=== PATIENT | female | born 1950 | race Two or more races ===

== ENCOUNTER → 2016-10-19 | Outpatient (CLI) | payer OTHER | LOC: BRMIMAGING 13:49 | PROVIDERS: ATTEND Family Medicine | DX: Z12.31 Encounter for screening mammogram for malignant neoplasm of breast (principal); Z13.820 Encounter for screening for osteoporosis; M81.0 Age-related osteoporosis without current pathological fracture; Z79.899 Other long term (current) drug therapy | CPT/HCPCS: G0202 ==